=== PATIENT | female | born 1935 | race Caucasian/White ===

== ENCOUNTER 2017-05-18 14:07 | Observation (INO) | payer MEDICARE, OTHER ==
[~2017-05-18] VITALS: Ht 160 cm; Wt 79.9 kg
[2017-05-18] MEDS ORDERED: NITROGLYCERIN 2% 1 GM OINT PKT TD STA (14:12)
[2017-05-18] MEDS ORDERED: NITROGLYCERIN (SL) 0.4 MG TAB SL PRN (14:30)
--- NOTE | 2017-05-18 14:40 | RADRPT ---
PROCEDURE: XR Chest. CLINICAL INDICATION: Chest pain TECHNIQUE: Single portable view of the chest was obtained COMPARISON: No priors for comparison FINDINGS: The trachea is midline. The cardiac silhouette and pulmonary vascularity are within normal limits. T here are bilateral chronic lung changes. The lungs are clear. The costophrenic angles are sharp. IMPRESSION: 1. No evidence of acute cardiopulmonary disease. RPTAT: AAPP Physician Neelam Date Time Electronically viewed and signed by Jacek Dey Physician on 05/18/2017 14:40 JL/
[2017-05-18 14:55] LABS: BASOPHILS % 0.9 % (0.0-2.0); EOSINOPHILS # 0.2 10^3/ul (0.0-0.5); EOSINOPHILS % 3.7 % (0.0-7.0); HEMATOCRIT 38.4 % (37.0-47.0); HEMOGLOBIN 12.9 g/dl (12.0-16.0); LYMPHOCYTES # 1.8 10^3/ul (0.8-2.9); LYMPHOCYTES % 38.5 % (15.0-51.0); MEAN CORPUSCULAR HEMOGLOBIN 31.5 pg (29.0-33.0); MEAN CORPUSCULAR HGB CONC 33.6 g/dl (32.0-37.0); MEAN CORPUSCULAR VOLUME 93.7 fl (82.0-101.0); MEAN PLATELET VOLUME 9.1 fl (7.4-10.4); MONOCYTE # 0.5 10^3/ul (0.3-0.9); MONOCYTES % 9.8 % (0.0-11.0); NEUTROPHIL # 2.2 10^3/ul (1.6-7.5); NEUTROPHILS % 46.9 % (39.0-77.0); PLATELET COUNT 175 10^3/UL (140-415); RED CELL DISTRIBUTION WIDTH 13.3 % (11.5-14.5); WHITE BLOOD COUNT 4.6 10^3/ul (4.8-10.8)
[2017-05-18] MEDS ORDERED: BENA20TA48 PO (15:10)
[2017-05-18] MEDS ORDERED: CARV6.25 PO (15:11)
[2017-05-18] MEDS ORDERED: SIMV20TA PO (15:11)
[2017-05-18 15:14] LABS: ANION GAP 14 (8-16); BLOOD UREA NITROGEN 12 mg/dl (7-20); CALCIUM 8.6 mg/dl (8.4-10.2); CARBON DIOXIDE 24 mmol/L (21-31); CHLORIDE 108 mmol/L (97-110); CREATININE 0.75 mg/dl (0.44-1.00); GLUCOSE 118 mg/dl (70-220); POTASSIUM 3.9 mmol/L (3.5-5.1); SODIUM 142 mmol/L (135-144)
[2017-05-18 15:31] LABS: TROPONIN-I < 0.012 ng/ml (0.00-0.12)
[2017-05-18] MEDS ORDERED: ONDANSETRON 4 MG INJ IV PRN (16:30)
--- NOTE | 2017-05-18 18:32 | ERD ---
ER Documentation Chief Complaint Chief Complaint BIBA FOR CP,NON RADIATING.ASPIRIN AND NITRO GIVEN IN THE FIELD HPI Patient is a 81-year-old female with hypertension and coronary artery disease who presents with chest pain and shortness of breath. A [place] office manager receptionist was used. The patient was given aspirin nitroglycerin at a clinic. She was sent from the clinic for admission. She was brought in by ambulance. The chest pain is left-sided and started yesterday. She had high blood pressure at that time as well as shortness of breath. The symptoms have been constant. She does not remember the name of her primary doctor. ROS All systems reviewed and are negative except as per history of present illness. Medications Home Meds Reported Medications Carvedilol* (Coreg*) 6.25 Mg Tablet, 6.25 MG PO BID, #60 TAB 05/18/17 Simvastatin* (Zocor*) 20 Mg Tablet, 20 MG PO QHS, #30 TAB 05/18/17 Benazepril Hcl* (Benazepril Hcl*) 20 Mg Tablet, 20 MG PO DAILY, #30 TAB 05/18/17 Allergies Allergies: Coded Allergies: No Known Allergy (Unverified , 05/18/17) PMhx/Soc History of Surgery: No Anesthesia Reaction: No Hx Neurological Disorder: No Hx Respiratory Disorders: No Hx Cardiac Disorders: Yes (HTN,HEART ATTACK 1998) Hx Psychiatric Problems: No Hx Miscellaneous Medical Probl: No Hx Alcohol Use: No Hx Substance Use: No Hx Tobacco Use: No Smoking Status: Never smoker FmHx Family History: No coronary disease Physical Exam Vitals Vital Signs Date Time Temp Pulse Resp B/P Pulse Ox O2 Delivery O2 Flow Rate FiO2 05/18/17 16:53 66 18 108/73 98 Nasal Cannula 2.0 05/18/17 14:31 Nasal Cannula 2 05/18/17 14:12 98.1 58 18 104/66 98 Physical Exam Const: No acute distress Head: Atraumatic Eyes: Normal Conjunctiva ENT: Normal External Ears, Nose and Mouth. Neck: Full range of motion..~ No meningismus. Resp: Clear to auscultation bilaterally Cardio: Regular rate and rhythm, no murmurs Abd: Soft, non tender, non distended. Normal bowel sounds Skin: No petechiae or rashes Back: No midline or flank tenderness Ext: No cyanosis, or edema Neur: Awake and alert Psych: Normal Mood and Affect Result Diagram: 05/18/17 1445 05/18/17 1445 Results 24 hrs Laboratory Tests Test 05/18/17 14:45 White Blood Count 4.610^3/ul Red Blood Count 4.1010^6/ul Hemoglobin 12.9g/dl Hematocrit 38.4% Mean Corpuscular Volume 93.7fl Mean Corpuscular Hemoglobin 31.5pg Mean Corpuscular Hemoglobin Concent 33.6g/dl Red Cell Distribution Width 13.3% Platelet Count 56105^3/UL Mean Platelet Volume 9.1fl Neutrophils % 46.9% Lymphocytes % 38.5% Monocytes % 9.8% Eosinophils % 3.7% Basophils % 0.9% Nucleated Red Blood Cells % 0.0/100WBC Neutrophils # 2.210^3/ul Lymphocytes # 1.810^3/ul Monocytes # 0.510^3/ul Eosinophils # 0.210^3/ul Basophils # 0.010^3/ul Nucleated Red Blood Cells # 0.010^3/ul Sodium Level 142mmol/L Potassium Level 3.9mmol/L Chloride Level 108mmol/L Carbon Dioxide Level 24mmol/L Anion Gap 14 Blood Urea Nitrogen 12mg/dl Creatinine 0.75mg/dl Glucose Level 118mg/dl Calcium Level 8.6mg/dl Troponin I < 0.012ng/ml Current Medications Medications (Trade) Dose Ordered Sig/Jimmy Route PRN Reason Start Time Stop Time Status Last Admin Dose Admin Nitroglycerin (Nitroglycerin 2% Oint) 1 inch ONCE STAT TD 05/18/17 14:12 05/18/17 14:13 DC 05/18/17 14:37 Nitroglycerin (Nitroglycerin (Sl Tab) 0.4 Mg) 1 tab Q5M UP TO 3 DOSES PRN SL CHEST PAIN 05/18/17 14:30 Ondansetron HCl (Zofran Inj) 4 mg ER BRIDGE PRN IV NAUSEA AND/OR VOMITING 05/18/17 16:30 05/19/17 16:29 Acetaminophen (Tylenol Tab) 650 mg ER BRIDGE PRN PO MILD PAIN/FEVER 05/18/17 16:30 05/19/17 16:29 Procedures/MDM EKG #1 read by me: Rate/Rhythm: Regular rate and rhythm at a normal rate Intervals: Normal Impression: Flipped T waves EKG #2 read by me: Rate/Rhythm: Regular rate and rhythm at a normal rate Intervals: Normal Impression: ST depressions concerning for ischemia Chest x-ray shows no pneumonia or pneumothorax per radiology. Patient is a 81-year-old female with coronary artery disease and hypertension who presents with chest pain and shortness of breath. I am concerned for potential acute coronary syndrome. The patient was given aspirin nitroglycerin. She will be admitted to the panel team to Dr. Peters. At this point I doubt pneumonia, pneumothorax, pulmonary embolism, or aortic dissection. Departure Diagnosis: Primary Impression: Chest pain Chest pain type: unspecified Qualified Code: R07.9 - Chest pain, unspecified type Condition: JOAQUÍN Aaron MD May 18, 2017 18:32
[2017-05-18 18:35] LABS: D-DIMER 447.51 ng/ml (<460)
--- NOTE | 2017-05-18 19:08 | HP ---
Date/Time of Note Date/Time of Note DATE: 05/18/17 TIME: 19:05 Assessment/Plan VTE Prophylaxis VTE Prophylaxis Intervention: LMWH Lines/Catheters IV Catheter Type (from Nrs): Saline Lock Assessment/Plan Chief Complaint/Hosp Course 81 yo female with reported history of CAD, hypertension who presents with back/ chest pain since yesterday It seems most likely this pain is related to her having slept on it wrong as she herself suspects. EKG shows some bigeminy but no ST changes - Will repeat troponin and send d-dimer to evaluate for dissection vs PE and exclude WA - TTE - If normal will discharge tomorrow Problems: HPI/ROS Admit Date/Time Admit Date/Time Hx of Present Illness 81 yo female with reported history of CAD remotely presents with CP/back pain since yesterday Patient states she began to develop posterior shoulder/back pain yesterday, says she feels like she "laid on it wrong". Since yesterday has had constant pain in her chest and back. She is worried it is from her heart. Does report getting more winded with exertion over the past few days as well. No SOB at rest. No exertional chest pain. PMH/Family/Social Past Medical History CAD Social History Smoking Status: Never smoker Exam/Review of Systems Vital Signs Vitals Vital Signs Date Time Temp Pulse Resp B/P Pulse Ox O2 Delivery O2 Flow Rate FiO2 05/18/17 18:38 61 21 99/61 99 Room Air 05/18/17 16:53 2.0 05/18/17 14:12 98.1 Exam Constitutional: alert, oriented, well developed Psych: nl mood/affect, no complaints Head: atraumatic, normocephalic Eyes: EOMI, PERRL, nl conjunctiva, nl lids, nl sclera ENMT: nl external ears & nose, nl lips & teeth, nl nasal mucosa & septum Neck: non-tender, supple Respiratory: clear to auscultation, normal air movement Cardiovascular: nl pulses, regular rate and rhythm Gastrointestinal: nl liver, spleen, non-tender, soft Musculoskeletal: nl extremities to inspection Extremities: normal pulses Neurological: JUNIOR DESIGNER II-XII intact, nl mental status, nl speech, nl strength Skin: nl turgor, No rash or lesions Lymph: nl lymph nodes Labs Result Diagram: 05/18/17 1445 05/18/17 1445 VALENTINE ANGULO MD May 18, 2017 19:08
[2017-05-18] MEDS ORDERED: OXYCODONE/ACETAMINOPHEN (5/325) TAB PO PRN (19:30)
[2017-05-18] MEDS ORDERED: NACL 0.9% 3 ML SYG IV SCH (19:30)
[2017-05-18 19:50] VITALS: Ht 160 cm; Wt 79.9 kg
[2017-05-18 20:00] VITALS: BP 110/59; PULSE 71; RESP 20
[2017-05-18 20:18] VITALS: BP 101/59; RESP 18
[2017-05-18 21:01] VITALS: BP 99/62; PULSE 67; RESP 16
[2017-05-18] MEDS: ACETAMINOPHEN 325 MG TAB PO PRN (21:27)
[2017-05-19] VITALS (8 sets, daily range): BP systolic 112–123; BP diastolic 57–66; PULSE 53–62; RESP 15–20
[2017-05-19 02:26] LABS: CREATINE KINASE 82 IU/L (23-200)
[2017-05-19 02:40] LABS: CK-MB 0.86 ng/ml (0.0-2.4)
[2017-05-19 02:45] LABS: TROPONIN-I < 0.012 ng/ml (0.00-0.12)
[2017-05-19 06:35] LABS: BASOPHIL # 0.1 10^3/ul (0.0-0.1); EOSINOPHILS # 0.2 10^3/ul (0.0-0.5); EOSINOPHILS % 3.7 % (0.0-7.0); HEMATOCRIT 39.3 % (37.0-47.0); HEMOGLOBIN 13.3 g/dl (12.0-16.0); LYMPHOCYTES # 2.1 10^3/ul (0.8-2.9); LYMPHOCYTES % 41.2 % (15.0-51.0); MEAN CORPUSCULAR HGB CONC 33.8 g/dl (32.0-37.0); MEAN CORPUSCULAR VOLUME 94.5 fl (82.0-101.0); MEAN PLATELET VOLUME 9.3 fl (7.4-10.4); MONOCYTE # 0.5 10^3/ul (0.3-0.9); MONOCYTES % 10.4 % (0.0-11.0); NEUTROPHIL # 2.2 10^3/ul (1.6-7.5); NEUTROPHILS % 43.3 % (39.0-77.0); PLATELET COUNT 184 10^3/UL (140-415); RED BLOOD COUNT 4.16 10^6/ul (4.20-5.40); RED CELL DISTRIBUTION WIDTH 13.3 % (11.5-14.5); WHITE BLOOD COUNT 5.1 10^3/ul (4.8-10.8)
[2017-05-19 06:56] LABS: ALBUMIN/GLOBULIN RATIO 1.15; BILIRUBIN,INDIRECT 0.4 mg/dl (0-1.1); BILIRUBIN,TOTAL 0.4 mg/dl (0.2-1.3); CALCIUM 8.6 mg/dl (8.4-10.2); CREATININE 0.79 mg/dl (0.44-1.00); POTASSIUM 4.1 mmol/L (3.5-5.1); TOTAL PROTEIN 5.6 g/dl (6.1-8.1)
[2017-05-19 07:37] LABS: CK-MB 0.94 ng/ml (0.0-2.4); CREATINE KINASE 74 IU/L (23-200)
[2017-05-19 07:42] LABS: TROPONIN-I < 0.012 ng/ml (0.00-0.12)
[2017-05-19] MEDS ORDERED: ENOXAPARIN 30 MG/0.3 ML SYG SC SCH (09:00)
[2017-05-19] MEDS: BENAZEPRIL 20 MG TAB PO SCH ×2 (09:00→10:56)
[2017-05-19] MEDS: ACETAMINOPHEN 325 MG TAB PO PRN (10:53)
--- NOTE | 2017-05-19 13:59 | PDOCDIS ---
Discharge Instructions DIAGNOSIS Discharge Diagnosis Chest pain CONDITION Patient Condition: Good HOME CARE INSTRUCTIONS: Special Diet: regular diet FOLLOW UP/APPOINTMENTS Follow-up Plan Return to the hospital if you have any concerning symptoms VALENTINE ANGULO MD May 19, 2017 13:59
--- NOTE | 2017-05-19 14:08 | DS ---
Date/Time of Note Date/Time of Note DATE: 05/19/17 TIME: 14:07 Discharge Summary Admission/Discharge Info Admit Date/Time May 18, 2017 at 16:07 Discharge Date/Time Discharge Diagnosis Chest pain Patient Condition: Good Hx of Present Illness 81 yo female with reported history of CAD remotely presents with CP/back pain since yesterday Patient states she began to develop posterior shoulder/back pain yesterday, says she feels like she "laid on it wrong". Since yesterday has had constant pain in her chest and back. She is worried it is from her heart. Does report getting more winded with exertion over the past few days as well. No SOB at rest. No exertional chest pain. Hospital Course 81 yo female with reported history of CAD, hypertension who presents with back/ chest pain since yesterday It seems most likely this pain is related to her having slept on it wrong as she herself suspects. EKG shows some bigeminy but no ST changes Serial troponins were negative, d-dimer below threshold Patient's symptoms stable. Likely chostochondritis. She preferred to be discharged rather than stay for TTE or stress which is reasonable. Home Meds Reported Medications Carvedilol* (Coreg*) 6.25 Mg Tablet, 6.25 MG PO BID, #60 TAB 05/18/17 Simvastatin* (Zocor*) 20 Mg Tablet, 20 MG PO QHS, #30 TAB 05/18/17 Benazepril Hcl* (Benazepril Hcl*) 20 Mg Tablet, 20 MG PO DAILY, #30 TAB 05/18/17 Follow-up Plan Return to the hospital if you have any concerning symptoms Primary Care Provider Care Physician No Primary Pending Labs Laboratory Tests Test 05/18/17 14:45 05/18/17 18:48 05/19/17 01:33 05/19/17 05:51 White Blood Count 4.610^3/ul (4.8-10.8) 5.110^3/ul (4.8-10.8) Red Blood Count 4.1010^6/ul (4.20-5.40) 4.1610^6/ul (4.20-5.40) Hemoglobin 12.9g/dl (12.0-16.0) 13.3g/dl (12.0-16.0) Hematocrit 38.4% (37.0-47.0) 39.3% (37.0-47.0) Mean Corpuscular Volume 93.7fl (82.0-101.0) 94.5fl (82.0-101.0) Mean Corpuscular Hemoglobin 31.5pg (29.0-33.0) 32.0pg (29.0-33.0) Mean Corpuscular Hemoglobin Concent 33.6g/dl (32.0-37.0) 33.8g/dl (32.0-37.0) Red Cell Distribution Width 13.3% (11.5-14.5) 13.3% (11.5-14.5) Platelet Count 57066^3/UL (140-415) 82046^3/UL (140-415) Mean Platelet Volume 9.1fl (7.4-10.4) 9.3fl (7.4-10.4) Neutrophils % 46.9% (39.0-77.0) 43.3% (39.0-77.0) Lymphocytes % 38.5% (15.0-51.0) 41.2% (15.0-51.0) Monocytes % 9.8% (0.0-11.0) 10.4% (0.0-11.0) Eosinophils % 3.7% (0.0-7.0) 3.7% (0.0-7.0) Basophils % 0.9% (0.0-2.0) 1.0% (0.0-2.0) Nucleated Red Blood Cells % 0.0/100WBC (0.0-0.0) 0.0/100WBC (0.0-0.0) Neutrophils # 2.210^3/ul (1.6-7.5) 2.210^3/ul (1.6-7.5) Lymphocytes # 1.810^3/ul (0.8-2.9) 2.110^3/ul (0.8-2.9) Monocytes # 0.510^3/ul (0.3-0.9) 0.510^3/ul (0.3-0.9) Eosinophils # 0.210^3/ul (0.0-0.5) 0.210^3/ul (0.0-0.5) Basophils # 0.010^3/ul (0.0-0.1) 0.110^3/ul (0.0-0.1) Nucleated Red Blood Cells # 0.010^3/ul (0.0-0.0) 0.010^3/ul (0.0-0.0) D-Dimer 447.51ng/ml (<460) D-Dimer Comment Sodium Level 142mmol/L (135-144) 147mmol/L (135-144) Potassium Level 3.9mmol/L (3.5-5.1) 4.1mmol/L (3.5-5.1) Chloride Level 108mmol/L (97-110) 112mmol/L (97-110) Carbon Dioxide Level 24mmol/L (21-31) 27mmol/L (21-31) Anion Gap 14 (8-16) 12 (8-16) Blood Urea Nitrogen 12mg/dl (7-20) 11mg/dl (7-20) Creatinine 0.75mg/dl (0.44-1.00) 0.79mg/dl (0.44-1.00) Glucose Level 118mg/dl (70-220) 91mg/dl (70-220) Calcium Level 8.6mg/dl (8.4-10.2) 8.6mg/dl (8.4-10.2) Troponin I < 0.012ng/ml (0.00-0.12) < 0.012ng/ml (0.00-0.12) < 0.012ng/ml (0.00-0.12) < 0.012ng/ml (0.00-0.12) Creatine Kinase 82IU/L (23-200) 74IU/L (23-200) Creatine Kinase Index 1.0 1.3 Creatinine Kinase MB (Mass) 0.86ng/ml (0.0-2.4) 0.94ng/ml (0.0-2.4) Total Bilirubin 0.4mg/dl (0.2-1.3) Direct Bilirubin 0.00mg/dl (0.00-0.20) Indirect Bilirubin 0.4mg/dl (0-1.1) Aspartate Amino Transf (AST/SGOT) 17IU/L (15-46) Alanine Aminotransferase (ALT/SGPT) 29IU/L (13-69) Alkaline Phosphatase 36IU/L (42-121) Total Protein 5.6g/dl (6.1-8.1) Albumin 3.0g/dl (3.3-4.9) Globulin 2.60g/dl (1.3-3.2) Albumin/Globulin Ratio 1.15 VALENTINE ANGULO MD May 19, 2017 14:08
== END 2017-05-19 14:53 | disposition home or self-care (01) ==
LOC: E/R 14:07 → MS4 16:07
PROVIDERS: ADMIT Internal Medicine; ATTEND Internal Medicine
DX: R07.9 Chest pain, unspecified (principal); I10 Essential (primary) hypertension; I25.10 Atherosclerotic heart disease of native coronary artery without angina pectoris
CPT/HCPCS: 36415; 71010; 80048; 80053; 82550; 82553; 84484; 85025; 85378; 93005; 99285; G0378; J1650